=== PATIENT | female | born 1970 | race Caucasian/White ===

== ENCOUNTER → 2017-06-22 | Outpatient (CLI) | payer BC ==
--- NOTE | 2017-06-22 10:18 | WWHP ---
[facility] - HISTORY AND PHYSICAL DATE OF SERVICE: 06/22/2017 CHIEF COMPLAINT: The patient is here for her routine gynecologic exam. HPI: This is a 46-year-old G 4, P-3-0-1-3 with an LMP of 06/01/2017. She is status post tubal ligation. She states her periods are regular every month but seem to have gotten more painful and heavier. They typically last about 3-7 days. The first days seems to be the heaviest where she has to change her protection about every 2 hours. She also is experiencing more cramps and low back discomfort during her periods and this is unusual for her. She has also had occasional low abdominal "twinges" that can happen even when she is not on her period and these are on and off rated at a 3/10 when she does have them. She has not taken medication for these pains or for her periods. The menstrual changes seems to have been going on for about 2 years. The patient also states she has been very tired and less energetic during the last 6 months. She does say that the last year has been stressful because of health issues in the family and 3 deaths in the family over the past year and a half. PAST MEDICAL HISTORY: Seasonal allergies. MEDICATIONS: None. ALLERGIES: No known drug allergies. PAST SURGICAL HISTORY: C-sections in 2001 and 2005 with a tubal ligation with her second . She also had hand surgery in 1992. PAST MANAGER [employer] HISTORY: She has no history of STDs. SOCIAL HISTORY: She denies tobacco and drug use and has about 2 alcohol containing drinks per year. She is a homemaker. FAMILY HISTORY: Mother recently had a CVA and had breast cancer. Grandfather had cancer which may have been colon cancer. REVIEW OF SYSTEMS: She has gained about 25 pounds over the past 2 years. This was after losing about 22 pounds the year prior to this. She denies respiratory, cardiac or GI problems. PHYSICAL EXAM: Blood pressure 109/70, height 5 feet 3 inches, weight 174 pounds, temperature 97.8, pulse 66. This is a well-developed, well-nourished, white female, who is alert and oriented x3, in no acute distress HEENT is within normal limits. NECK: Supple without mass or thyromegaly. Chest, LUNGS: Clear to auscultation. HEART: Regular rate and rhythm. Breasts are without mass or discharge. Axillary exam is negative for adenopathy. Back negative for CVA tenderness. ABDOMEN: Soft, nontender, without palpable masses pelvic exam normal external genitalia. Cervix and vagina appear normal. There is no unusual vaginal discharge. There is no evidence of prolapse. The cervix appears multiparous. The uterus is retroverted, nongravid size and nontender. There are no palpable adnexal masses or tenderness. Rectovaginal exam is negative for mass or tenderness and is negative for occult blood. Extremities nontender. IMPRESSION: 1. 46-year-old, premenopausal female with dysmenorrhea and mild hypermenorrhea. 2. Fatigue. 3. Retroverted uterus, but differential diagnosis will also include possible a fibroid uterus. PLAN: 1. Pap smear was performed. 2. Self breast examination was discussed. 3. I have recommended screening mammogram and a slip was given to the patient for this. 4. Pelvic ultrasound was also recommended and she will have this scheduled. 5. Trial of meclofenamate sodium 100 mg t.i.d. p.r.n. for heavy menstrual flow or menstrual cramps. 6. I have recommended a CBC and TSH if her primary care physician has not already drawn this. She states she had blood work done about 2 months ago and is not sure if these were included. She will check with her primary care physician to see if it was already done. 7. I have stressed the importance of good diet and regular exercise and activity. 8. We have also discussed the possible surgical options for her menstrual problems including possible endometrial ablation or hysterectomy if symptoms are not improving. 9. She will return in 1 year and p.r.n. 10.Total time spent with the patient 35 minutes. MMODL / IJN: [id number] /
== END | disposition home or self-care (01) ==
LOC: WWCWWP 08:33
PROVIDERS: ATTEND Obstetrics & Gynecology
DX: Z01.419 Encounter for gynecological examination (general) (routine) without abnormal findings (principal)

== ENCOUNTER → 2017-07-12 | Outpatient (CLI) | payer BC ==
[2017-07-12 13:57] LABS: Basophils % (A) 1 %; CH 28.6; CHCM 32.9; Eosinophils # (A) 0.1 k/uL (0-0.7); Eosinophils % (A) 1 %; HCT 38.1 % (34.0-46.0); HDW 2.49; HGB 12.5 gm/dL (11.4-16.0); Luc # (Auto) 0.14; Luc % (Auto) 2; Lymphocytes # (A) 1.6 k/uL (1.0-4.8); Lymphocytes % (A) 23 %; MCH 28.7 pg (25.0-35.0); MCHC 32.9 g/dL (31.0-37.0); MCV 87.3 fL (80.0-100.0); Mean Platelet Volume 9.4; Monocytes # (A) 0.2 k/uL (0-1.0); Monocytes % (A) 3 %; Neutrophils % (A) 71 %; RBC 4.36 m/uL (3.80-5.40); RDW 12.8 % (11.5-15.5); WBC 7.1 k/uL (3.8-10.6); WBC (Perox) 7.52
[2017-07-12 14:05] LABS: Anion Gap 10 mmol/L; Blood Urea Nitrogen 15 mg/dL (7-17); Calcium 9.6 mg/dL (8.4-10.2); Carbon Dioxide 25 mmol/L (22-30); Chloride 105 mmol/L (98-107); Glucose 95 mg/dL (74-99); Non-African American GFR(MDRD) >60 (>60 ml/min/1.73 sqM); Potassium 4.8 mmol/L (3.5-5.1); Sodium 140 mmol/L (137-145)
--- NOTE | 2017-07-12 14:22 | US ---
EXAMINATION TYPE: US pelvis complete transvag DATE OF EXAM: 07/12/2017 COMPARISON: NONE CLINICAL HISTORY: 46-year-old female with N94.6 Dysmenorrhea. Date of LMP: 07/01/2017 TECHNIQUE: Multiple transabdominal sonographic images of the pelvis are obtained. Transvaginal scanni ng was medically necessary to better evaluate the anatomy. FINDINGS: Uterus: Retroverted measuring 8.3 x 4.9 x 4.7 cm. A couple nabothian cysts are present, the larger of which measures up to 1.2 cm. There is a dominant anterior fundal fibroid measuring 4.0 x 2.5 x 2.0 cm that appears intramural. A s econd intramural focal fibroid measures 14 x 11 x 10 mm along the right uterine body. Endometrial Stripe: 8.2 mm, within normal limits. Right Ovary: 2.6 x 1.6 x 2.2 cm Left Ovary: 2.3 x 2.3 x 2.1 cm There is follicular change, dominant follicle on the left measuring 1.2 cm. No evident adnexal abnormality. Mild pelvic free fluid. IMPRESSION: 1. Retroverted uterus with a couple fibroids, largest measuring 4.0 cm. Both of these appear intramur al. 2. Endometrial stripe measures 8 mm. 3. Small amount of pelvic free fluid likely physiologic.
--- NOTE | 2017-07-13 10:17 | MM ---
Reason for exam: screening (asymptomatic). Last mammogram was performed 5 years and 6 months ago. History: Family history of breast cancer in maternal aunt. Took hormonal contraceptives for 10 years. Took progesterone for 1 month. Physical Findings: A clinical breast exam by your physician is recommended on an annual basis and results should be correlated with mammographic findings. MG Screening Mammo w CAD Bilateral CC and MLO view(s) were taken. Prior study comparison: January 24, 2012, bilateral digital screening mammo w/CAD. There are scattered fibroglandular densities. No suspicious abnormality. No significant changes when compared with prior studies. ASSESSMENT: Negative, BI-RAD 1 RECOMMENDATION: Routine screening mammogram of both breasts in 1 year.
== END | disposition home or self-care (01) ==
LOC: RADUSWWP 12:09
PROVIDERS: ATTEND Obstetrics & Gynecology
DX: Z12.31 Encounter for screening mammogram for malignant neoplasm of breast (principal); D25.9 Leiomyoma of uterus, unspecified; N85.4 Malposition of uterus; R53.83 Other fatigue; Z00.00 Encounter for general adult medical examination without abnormal findings
CPT/HCPCS: 80048; 84443; 85025; 76856; 76830; 36415; G0202

== ENCOUNTER → 2018-11-30 | Outpatient (CLI) | payer BC ==
--- NOTE | 2018-12-01 11:52 | MM ---
Reason for exam: screening (asymptomatic). Last mammogram was performed 1 year and 5 months ago. History: Family history of breast cancer in maternal aunt. Took hormonal contraceptives for 10 years. Took progesterone for 1 month. Physical Findings: A clinical breast exam by your physician is recommended on an annual basis and results should be correlated with mammographic findings. MG Screening Mammo w CAD Bilateral CC and MLO view(s) were taken. Prior study comparison: July 12, 2017, bilateral MG screening mammo w CAD. January 24, 2012, bilateral digital screening mammo w/CAD. There are scattered fibroglandular densities. No suspicious abnormality. No significant changes when compared with prior studies. ASSESSMENT: Negative, BI-RAD 1 RECOMMENDATION: Routine screening mammogram of both breasts in 1 year.
== END | disposition home or self-care (01) ==
LOC: RADMAMWWP 08:23
PROVIDERS: ATTEND Obstetrics & Gynecology
DX: Z12.31 Encounter for screening mammogram for malignant neoplasm of breast (principal); Z80.3 Family history of malignant neoplasm of breast
CPT/HCPCS: 77067

== ENCOUNTER → 2019-08-08 | Outpatient (CLI) | payer BC ==
--- NOTE | 2019-08-08 11:33 | ECHOF ---
Referral Reason:R00.2 palpitations, Z82.49 family history of MEASUREMENTS -------- HEIGHT: 160.0 cm WEIGHT: 80.7 kg BP: RVIDd: 2.4 cm (< 3.3) IVSd: 1.0 cm (0.6 - 1.1) LVIDd: 4.0 cm (3.9 - 5.3) LVPWd: 1.0 cm (0.6 - 1.1) IVSs: 1.4 cm LVIDs: 2.6 cm LVPWs: 1.5 cm LAESV Index (A-L): 19.80 ml/m Ao Diam: 2.4 cm (2.0 - 3.7) AV Cusp: 1.6 cm (1.5 - 2.6) LA Diam: 2.8 cm (2.7 - 3.8) MV EXCURSION: 22.278 mm (> 18.000) MV EF SLOPE: 149 mm/s (70 - 150) EPSS: 0.3 cm MV E Mohan: 1.00 m/s MV DecT: 217 ms MV A Mohan: 0.47 m/s MV E/A Ratio: 2.12 AR PHT: 285 ms RAP: 5.00 mmHg RVSP: 19.01 mmHg FINDINGS -------- Sinus rhythm. This was a technically adequate study. The left ventricular size is normal. Left ventricular wall thickness is normal. Overall left vent ricular systolic function is normal with, an EF between 55 - 60 %. The diastolic filling pattern is normal for the age of the patient 10.42. The right ventricle is normal in size. The left atrial size is normal. Normal LA size by volume 22+/-6 ml/m2. The right atrial size is normal. The aortic valve is trileaflet and appears structurally normal. Trace amount of aortic regurgitatio n. The mitral valve is normal. There is trace mitral regurgitation. The tricuspid valve appears structurally normal. Trace tricuspid regurgitation present. Right patience tricular systolic pressure is normal at < 35 mmHg. There is no pulmonic regurgitation present. The aortic root size is normal. Normal inferior vena cava with normal inspiratory collapse consistent with estimated right atrial pre ssure of 5 mmHg. There is no pericardial effusion. CONCLUSIONS -------- 1. Sinus rhythm. 2. This was a technically adequate study. 3. The left ventricular size is normal. 4. Left ventricular wall thickness is normal. 5. Overall left ventricular systolic function is normal with, an EF between 55 - 60 %. 6. The diastolic filling pattern is normal for the age of the patient 10.42 7. The right ventricle is normal in size. 8. The left atrial size is normal. 9. Normal LA size by volume 22+/-6 ml/m2. 10. The right atrial size is normal. 11. The aortic valve is trileaflet and appears structurally normal. 12. Trace amount of aortic regurgitation. 13. The mitral valve is normal. 14. There is trace mitral regurgitation. 15. The tricuspid valve appears structurally normal. 16. Trace tricuspid regurgitation present. 17. Right ventricular systolic pressure is normal at < 35 mmHg. 18. There is no pulmonic regurgitation present. 19. The aortic root size is normal. 20. Normal inferior vena cava with normal inspiratory collapse consistent with estimated right atrial pressure of 5 mmHg. 21. There is no pericardial effusion. ASSEMBLY ADJUSTER: Adalgisa Michaels RDCS
--- NOTE | 2019-08-08 14:17 | EST ---
EXERCISE STRESS AGE: 48 SEX: F HT: 5'-3 08/23" WT: 178 PROTOCOL: Drew Stress Test STAGE: II DURATION OF EXERCISE: 7:00 HEART RATE REST: 68 BLOOD PRESSURE REST: 105/66 MAXIMUM HEART RATE ACHIEVED: 165 MAXIMUM BLOOD PRESSURE: 178/78 85% MPHR: 147 100% MPHR: 173 METS: 8.5 INDICATIONS: Palpitations. CLINICAL INFORMATION: STRESS DATA: Heart rate 68, pressure is 105/66 mmHg, baseline EKG showed sinus mechanism. The patient exercised on the treadmill according to Drew protocol for a total of 7 minutes and achieved 8.5 METS with max heart rate was 165, which is about 96% of maximum predicted heart rate. Maximum blood pressure was 178/78 mmHg. Clinically, the patient developed some shortness of breath without any chest pain. The EKG did not show any significant ST or T-wave abnormalities concerning for ischemia. CONCLUSION: 1. Good exercise tolerance. 2. Good augmentation in the in the heart rate and blood pressure in response to exercise. 3. Normal EKG in response to exercise. 4. The patient developed shortness of breath in response to exercise. MMODL / IJN: [id number] /
== END | disposition home or self-care (01) ==
LOC: RADNMMAIN 10:27
PROVIDERS: ATTEND Family Medicine
DX: R00.2 Palpitations (principal); Z82.49 Family history of ischemic heart disease and other diseases of the circulatory system
CPT/HCPCS: 93017; 93306

== ENCOUNTER → 2023-09-23 | Outpatient (CLI) | payer BC ==
--- NOTE | 2023-09-27 10:37 | MM ---
Reason for Exam: Screening (asymptomatic). Last mammogram was performed 4 year(s) and 10 month(s) ago. Patient History: Menarche at age 13. First Full-Term at age 30. Premenopausal. Progesterone for 1 month. Patient used Hormonal Contraceptives for 10 years. Maternal aunt had breast cancer. Risk Values: Lina 5 year model risk: 1.1%. NCI Lifetime model risk: 9.7%. Prior Study Comparison: 01/24/2012 Bilateral Screening Mammogram, [facility]. 07/12/2017 Bilateral Screening Mammogram, [facility]. 11/30/2018 Bilateral Screening Mammogram, [facility]. Tissue Density: The breast tissue is heterogeneously dense. This may lower the sensitivity of mammography. Findings: Analyzed By CAD. There is no suspicious group of microcalcifications or new suspicious mass in either breast. Overall Assessment: Negative, BI-RAD 1 Management: Screening Mammogram of both breasts in 1 year. . Patient should continue monthly self-breast exams. A clinical breast exam by your physician is recommended on an annual basis. This exam should not preclude additional follow-up of suspicious palpable abnormalities. Note on Lina scores and lifetime risk: 1. A Lina score greater than 3% is considered moderate risk. If this is the case, consider specialist referral to assess eligibility for a risk reducing agent. 2. If overall lifetime risk for the development of breast cancer is 20% or higher, the patient may qualify for future screening with alternating mammogram and breast MRI. Electronically signed and approved by: Ludin Mcpherson M.D. Radiologis
== END | disposition home or self-care (01) ==
LOC: RADMAMWWP 15:18
PROVIDERS: ATTEND Family Medicine
DX: Z12.31 Encounter for screening mammogram for malignant neoplasm of breast (principal); Z80.3 Family history of malignant neoplasm of breast
CPT/HCPCS: 77063; 77067

== ENCOUNTER → 2024-09-20 | Outpatient (CLI) | payer BC ==
[2024-09-20 14:47] LABS: Basophils # (A) 0.03 X 10*3/uL (0.00-0.10); Basophils % (A) 0.4 %; Eosinophils % (A) 1.4 %; HGB 12.4 g/dL (12.0-15.0); Lymphocytes # (A) 1.35 X 10*3/uL (0.90-5.00); Lymphocytes % (A) 19.2 %; MCH 28.6 pg (27.0-32.0); MCHC 32.6 g/dL (32.0-37.0); MCV 87.6 FL (80.0-97.0); Mean Platelet Volume 13.3 FL (9.5-12.2); Monocytes # (A) 0.33 X 10*3/uL (0.20-1.00); Monocytes % (A) 4.7 %; NRBC Per 100 WBC 0 X 10*3/uL (0.00-0.01); Neutrophils # (A) 5.21 X 10*3/uL (1.80-7.70); Platelet Count 184 X 10*3/uL (140-440); RBC 4.34 X 10*6/uL (4.10-5.20); RDW 13.4 % (11.5-14.5); WBC 7.04 X 10*3/uL (4.50-10.00)
[2024-09-20 15:20] LABS: ALT 20 U/L (8-44); AST 23 U/L (13-35); Albumin 4.4 g/dL (3.8-4.9); Albumin/Globulin Ratio 1.57 Ratio (1.60-3.17); Alkaline Phosphatase 80 U/L (41-126); BUN/Creat Ratio 10.11 Ratio (12.00-20.00); Blood Urea Nitrogen 9.1 mg/dL (9.0-27.0); Calcium 9.5 mg/dL (8.7-10.3); Carbon Dioxide 24.7 mmol/L (21.6-31.8); Chloride 103 mmol/L (96-109); Chol/HDL Ratio 3.56 Ratio; Globulin 2.8 g/dL (1.6-3.3); Glucose 116 mg/dL (70-110); LDL Cholesterol,Calculated 134.8 mg/dL (0.0-131.0); Potassium 4.5 mmol/L (3.5-5.5); Sodium 139 mmol/L (135-145); Total Bilirubin 0.6 mg/dL (0.3-1.2); Total Protein 7.2 g/dL (6.2-8.2)
== END | disposition home or self-care (01) ==
LOC: LABWHC1 11:01
PROVIDERS: ATTEND Family Medicine
DX: Z13.228 Encounter for screening for other metabolic disorders (principal); Z86.2 Personal history of diseases of the blood and blood-forming organs and certain disorders involving the immune mechanism
CPT/HCPCS: 36415; 80053; 80061; 82306; 83021; 83036; 84443; 85025

== ENCOUNTER → 2024-10-25 | Outpatient (CLI) | payer BC ==
--- NOTE | 2024-10-25 14:52 | MM ---
Reason for Exam: Screening (asymptomatic). Last mammogram was performed 1 year(s) and 1 month(s) ago. Patient History: Menarche at age 13. First Full-Term at age 30. Premenopausal. Progesterone for 1 month. Patient used Hormonal Contraceptives for 10 years. Maternal aunt had breast cancer. Risk Values: Lina 5 year model risk: 1.2%. NCI Lifetime model risk: 9.6%. Prior Study Comparison: 07/12/2017 Bilateral Screening Mammogram, [facility]. 11/30/2018 Bilateral Screening Mammogram, [facility]. 09/23/2023 Bilateral MG 3D screening mammo w/cad, [facility]. Tissue Density: There are scattered areas of fibroglandular density. Findings: Analyzed By CAD. There is no suspicious group of microcalcifications or new suspicious mass in either breast. Overall Assessment: Negative, BI-RAD 1 Management: Screening Mammogram of both breasts in 1 year. Patient should continue monthly self-breast exams. A clinical breast exam by your physician is recommended on an annual basis. This exam should not preclude additional follow-up of suspicious palpable abnormalities. Note on Lina scores and lifetime risk: 1. A Lina score greater than 3% is considered moderate risk. If this is the case, consider specialist referral to assess eligibility for a risk reducing agent. 2. If overall lifetime risk for the development of breast cancer is 20% or higher, the patient may qualify for future screening with alternating mammogram and breast MRI. [facility], , 10/25/2024 2:49 PM. Electronically signed and approved by: Naresh Begum M.D. Radiologist
== END | disposition home or self-care (01) ==
LOC: RADMAMWWP 09:01
PROVIDERS: ATTEND Family Medicine
DX: Z12.31 Encounter for screening mammogram for malignant neoplasm of breast (principal); R92.323 Mammographic fibroglandular density, bilateral breasts; Z80.3 Family history of malignant neoplasm of breast; Z92.0 Personal history of contraception
CPT/HCPCS: 77063; 77067